=== PATIENT | female | born 1980 | race Caucasian/White ===

== ENCOUNTER 2022-07-15 21:11 | Emergency (ER) | payer MEDICAID ==
[~2022-07-15] VITALS: Ht 157.5 cm; Wt 80.0 kg
[~2022-07-15 21:11] MED LIST: ATEN50TA PO
[2022-07-15 21:17] VITALS: BP 162/88
[2022-07-15] MEDS ORDERED: ASPI-1497 MT (21:44)
[2022-07-15] MEDS ORDERED: ATOR40TA70 MT (21:44)
== END 2022-07-15 21:40 | disposition home or self-care (01) ==
LOC: ER 21:11
DX: I10 Essential (primary) hypertension (principal); Z76.0 Encounter for issue of repeat prescription
CPT/HCPCS: 99281

== ENCOUNTER 2022-07-22 01:06 | Emergency (ER) | payer MEDICAID ==
[~2022-07-22] VITALS: Ht 162.6 cm; Wt 78.0 kg
[~2022-07-22 01:06] MED LIST changes: +ASPI-1497 MT; +ATOR40TA70 MT
[2022-07-22] MEDS ORDERED: ACETAMINOPHEN 325MG TABLET PO ONE (02:15)
[2022-07-22] MEDS ORDERED: MECLIZINE 25MG TABLET PO ONE (02:15)
[2022-07-22 02:41] LABS: BASOPHILS % 0.6 % (0.0-2.0); EOSINOPHILS % 4.5 % (0.0-5.0); HEMATOCRIT. 34.6 % (36.0-48.0); HEMOGLOBIN. 11.7 g/dL (12.0-16.0); LYMPHOCYTES % 25.5 % (20.0-50.0); MEAN CORPUSCULAR HEMOGLOBIN 31.1 pg (28.0-32.0); MEAN CORPUSCULAR VOLUME 92.1 fL (81.0-99.0); MEAN PLATELET VOLUME 9.1 fl (7.4-10.4); MONOCYTES % 9.6 % (2.0-8.0); NEUTROPHILS % 59.8 % (40.0-76.0); PLATELET 291 x1000/uL (130-400); RED BLOOD CELL COUNT 3.75 mill/uL (4.2-5.4)
[2022-07-22 02:54] LABS: CHLORIDE 108 mEq/L (98-107)
[2022-07-22 02:57] LABS: PARTIAL THROMBOPLASTIN TIME 26.5 sec (23.4-31.0); PROTHROMBIN TIME 10.8 sec (9.6-11.0)
[2022-07-22 03:01] LABS: CLARITY URINE CLEAR (CLEAR); COLOR URINE YELLOW (YELLOW); KETONES URINE 1+ (NEGATIVE); LEUKOCYTE ESTERASE URINE TRACE (NEGATIVE); NITRITE URINE NEGATIVE (NEGATIVE); OCCULT BLOOD URINE 1+ (NEGATIVE); PROTEIN URINE NEGATIVE (NEGATIVE); SPECIFIC GRAVITY URINE 1.021 (1.005-1.030); UROBILINOGEN URINE 0.2 E.U./dL (0.2-1.0)
[2022-07-22] MEDS ORDERED: MECL-159 MT (03:22)
[2022-07-22 03:30] VITALS: BP 142/80
== END 2022-07-22 03:45 | disposition home or self-care (01) ==
LOC: ER 01:06
DX: S23.9XXA Sprain of unspecified parts of thorax, initial encounter (principal); H81.10 Benign paroxysmal vertigo, unspecified ear; I10 Essential (primary) hypertension; Z79.82 Long term (current) use of aspirin; X58.XXXA Exposure to other specified factors, initial encounter; Y93.89 Activity, other specified; Y92.89 Other specified places as the place of occurrence of the external cause; Y99.8 Other external cause status
CPT/HCPCS: 36415; 71045; 80053; 81003; 84484; 85025; 85610; 85730; 93005; 99285; J8597; Z7610

== ENCOUNTER 2022-08-23 15:50 | Emergency (ER) | payer MEDICAID ==
[~2022-08-23] VITALS: Ht 152.4 cm; Wt 63.0 kg
[~2022-08-23 15:50] MED LIST changes: +MECL-159 MT
[2022-08-23 16:29] LABS: BASOPHILS % 0.2 % (0.0-2.0); EOSINOPHILS % 4.3 % (0.0-5.0); HEMATOCRIT. 30.5 % (36.0-48.0); HEMOGLOBIN. 10.2 g/dL (12.0-16.0); LYMPHOCYTES % 18.3 % (20.0-50.0); MEAN CORPUSCULAR HEMOGLOBIN 29.7 pg (28.0-32.0); MEAN CORPUSCULAR VOLUME 89.1 fL (81.0-99.0); MEAN PLATELET VOLUME 8.7 fl (7.4-10.4); MONOCYTES % 10.9 % (2.0-8.0); NEUTROPHILS % 66.3 % (40.0-76.0); PLATELET 302 x1000/uL (130-400); RED BLOOD CELL COUNT 3.42 mill/uL (4.2-5.4); RED CELL DISTRIBUTION WIDTH 13.1 % (11.6-14.6)
[2022-08-23 16:35] LABS: CHLORIDE 108 mEq/L (98-107)
[2022-08-23 16:37] LABS: CLARITY URINE CLEAR (CLEAR); COLOR URINE YELLOW (YELLOW); KETONES URINE NEGATIVE (NEGATIVE); LEUKOCYTE ESTERASE URINE TRACE (NEGATIVE); NITRITE URINE NEGATIVE (NEGATIVE); OCCULT BLOOD URINE NEGATIVE (NEGATIVE); PH URINE 5.5 (4.5-8.0); PROTEIN URINE NEGATIVE (NEGATIVE); SPECIFIC GRAVITY URINE 1.004 (1.005-1.030); UROBILINOGEN URINE 0.2 E.U./dL (0.2-1.0)
[2022-08-23 21:00] VITALS: BP 126/72
== END 2022-08-23 21:21 | disposition home or self-care (01) ==
LOC: ER 15:50
DX: R00.2 Palpitations (principal); E86.0 Dehydration; I10 Essential (primary) hypertension
CPT/HCPCS: 36415; 71045; 80053; 81003; 81025; 83735; 84484; 85025; 93005; 99285; Z7610

== ENCOUNTER 2022-08-25 23:14 | Emergency (ER) | payer MEDICAID ==
[~2022-08-25] VITALS: Ht 160 cm; Wt 79.0 kg
[2022-08-26 01:41] VITALS: O2SAT 100
[2022-08-26 03:28] LABS: BASOPHILS % 0.3 % (0.0-2.0); EOSINOPHILS % 3.7 % (0.0-5.0); HEMATOCRIT. 31.1 % (36.0-48.0); HEMOGLOBIN. 10.3 g/dL (12.0-16.0); LYMPHOCYTES % 23.1 % (20.0-50.0); MEAN CORPUSCULAR HEMOGLOBIN 29.1 pg (28.0-32.0); MEAN CORPUSCULAR VOLUME 87.9 fL (81.0-99.0); MONOCYTES % 11.1 % (2.0-8.0); NEUTROPHILS % 61.8 % (40.0-76.0); PLATELET 287 x1000/uL (130-400); RED BLOOD CELL COUNT 3.54 mill/uL (4.2-5.4); RED CELL DISTRIBUTION WIDTH 12.9 % (11.6-14.6)
[2022-08-26 03:34] LABS: CHLORIDE 110 mEq/L (98-107)
[2022-08-26 03:58] LABS: HCG SCREEN NEGATIVE
[2022-08-26 05:16] VITALS: BP 143/62; PULSE 70; RESP 16; TEMP 98.5
== END 2022-08-26 05:19 | disposition home or self-care (01) ==
LOC: ER 23:14
DX: I10 Essential (primary) hypertension (principal)
CPT/HCPCS: 36415; 71045; 80053; 84484; 84703; 85025; 93005; 99285

== ENCOUNTER 2022-09-07 23:29 | Emergency (ER) | payer MEDICAID ==
[~2022-09-07] VITALS: Ht 162.6 cm; Wt 78.8 kg
[2022-09-08 00:12] VITALS: BP 152/72; PULSE 72; RESP 16; TEMP 98.8; O2SAT 99
== END 2022-09-08 07:50 | disposition left against medical advice (07) ==
LOC: ER 23:29
DX: Z53.21 Procedure and treatment not carried out due to patient leaving prior to being seen by health care provider (principal)
CPT/HCPCS: 99281